=== PATIENT | female | born 1995 | race African-American/Black ===

== ENCOUNTER → 2016-08-02 | Outpatient (CLI) | payer BC ==
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
== END | disposition home or self-care (01) ==
LOC: RADMRIMAIN 20:20
PROVIDERS: ATTEND Orthopaedic Surgery
DX: M25.811 Other specified joint disorders, right shoulder (principal)

== ENCOUNTER → 2016-12-17 | Outpatient (CLI) | payer BC ==
--- NOTE | 2016-12-17 09:03 | MR ---
Brain MRI without contrast HISTORY: Postconcussion syndrome, headaches and dizziness, forgetfulness Correlation to prior brain MRI dated 23 August 2012 Multiplanar multisequence imaging through the brain, patient refused intravenous contrast There is no restricted diffusion. Brain signal is normal. There is no hemorrhage or hydrocephalus. Or bits show symmetric appearance. Corpus callosum, pituitary, cervical medullary junction, cerebellopon alfonso angles are normal. There are normal vascular flow voids. Layne-white signal differentiation is no rmal. IMPRESSION: Normal brain MRI
== END | disposition home or self-care (01) ==
LOC: RADMRIMAIN 07:48
PROVIDERS: ATTEND Family Medicine
DX: F07.81 Postconcussional syndrome (principal)
CPT/HCPCS: 70551

== ENCOUNTER → 2019-09-19 | Outpatient (CLI) | payer BC | END | disposition home or self-care (01) | LOC: LABWHC1 13:29 | PROVIDERS: ATTEND Nurse Practitioner Family | DX: R10.9 Unspecified abdominal pain (principal) | CPT/HCPCS: 87338 ==

== ENCOUNTER 2019-10-02 10:03 | Day surgery (SDC) | payer BC ==
[2019-09-27 10:15] VITALS: BMI 22.8
[~2019-10-02 10:03] MED LIST: LACTATED RINGERS 1,000 ML IV SCH; LIDOCAINE 1% (10MG/ML) FOR IV START INTRADERMA PRN
[2019-10-02 10:58] VITALS: TEMP 98.3
[2019-10-02] MEDS ORDERED: LIDOCAINE 1% INJ 10MG/ML (20 ML MDV) ONE (11:17)
[2019-10-02] MEDS ORDERED: PROPOFOL 10 MG/ML 20 ML VIAL IV ONE (11:17)
--- NOTE | 2019-10-02 11:27 | P.PCN ---
Date of Procedure: 10/02/19 Procedure(s) Performed: BRIEF HISTORY: Patient is a 24-year-old, pleasant,female scheduled for an upper endoscopy as a part of evaluation of epigastric pain for the last several months duration. She is on omeprazole 20 mg daily with some improvement in his symptoms.. PROCEDURE PERFORMED: Esophagogastroduodenoscopy with biopsy. PREOPERATIVE DIAGNOSIS: Chronic epigastric pain. IV sedation per anesthesia. PROCEDURE: After informed consent was obtained, the patient was brought into the endoscopy unit. IV sedation was administered by Anesthesia under continuous monitoring. Initially the Olympus GIF-140 video endoscope was inserted into the mouth. Esophagus intubated without any difficulty. It was gradually advanced into the stomach and duodenum and carefully examined. The bulb and the second part of the duodenum appeared normal. Abscesses were done from the duodenum to rule out celiac disease. The scope at this time was withdrawn to the stomach, adequately insufflated with air, and upon careful examination, mucosa of the antrum had mild antral gastritis and biopsies were done from this area. There was moderate amount of retained food in the fundus of the stomach consistent with gastroparesis. The rest of the, body, cardia and the fundus appeared normal. The scope was then withdrawn into the esophagus. The GE junction was located at 39 cm from the incisors. The esophagus appeared normal. There were no erosions or ulcerations seen and the patient tolerated the procedure well. IMPRESSION: 1. Retained food in the stomach suggestive of gastroparesis with no evidence of gastric outlet. 2. Mild antral gastritis. RECOMMENDATIONS: The findings of this examination were discussed with the patient as well as a family. She was advised to continue with Prilosec 20 mg daily and follow antireflux measures. She was also advised on small frequent meals.
[2019-10-02 11:54] VITALS: BP 104/56; PULSE 67; RESP 18
== END 2019-10-02 12:25 | disposition home or self-care (01) ==
LOC: ORWHC2ENDO 10:03
PROVIDERS: ATTEND Internal Medicine Gastroenterology
DX: K29.50 Unspecified chronic gastritis without bleeding (principal); K21.9 Gastro-esophageal reflux disease without esophagitis; G89.29 Other chronic pain; K31.84 Gastroparesis; Z79.899 Other long term (current) drug therapy; Z79.2 Long term (current) use of antibiotics
CPT/HCPCS: 81025; 88305; 43239; J2001; J2704